=== PATIENT | female | born 1970 | race Two or more races ===

== ENCOUNTER 2018-06-07 15:42 | Emergency (ER) | payer OTHER ==
[~2018-06-07] VITALS: Ht 165.1 cm; Wt 69.9 kg
[2018-06-07] MEDS ORDERED: SYNTHROID175 MCG PO (15:56)
== END 2018-06-07 21:27 | disposition home or self-care (01) ==
LOC: ER 15:42
DX: S13.4XXA Sprain of ligaments of cervical spine, initial encounter (principal); V49.9XXA Car occupant (driver) (passenger) injured in unspecified traffic accident, initial encounter; Y93.89 Activity, other specified; Y92.488 Other paved roadways as the place of occurrence of the external cause; Y99.8 Other external cause status

== ENCOUNTER 2024-02-04 10:55 | Emergency (ER) | payer OTHER ==
[~2024-02-04] VITALS: Ht 165.1 cm; Wt 69.9 kg
[~2024-02-04 10:55] MED LIST: SYNTHROID175 MCG PO
[2024-02-04] MEDS ORDERED: ACETAMINOPHEN 500 MG GEL..CAP PO ONE (16:00)
[2024-02-04] MEDS ORDERED: KETOROLAC TROMETHAMINE 30 MG VIAL IM ONE (16:00)
== END 2024-02-04 16:55 | disposition home or self-care (01) ==
LOC: ER 10:56
DX: B02.23 Postherpetic polyneuropathy (principal); Z91.013 Allergy to seafood; Z91.041 Radiographic dye allergy status